=== PATIENT | male | born 1990 | race Caucasian/White ===

== ENCOUNTER → 2020-03-16 15:12 | Outpatient (CLI) | payer BC, SELFPAY | PROVIDERS: PCP Family Medicine; Visit Provider Family Medicine | DX: R00.2 Palpitations (principal) | CPT/HCPCS: 93225; 93226 ==

== ENCOUNTER → 2020-03-23 13:11 | Outpatient (CLI) | payer BC, SELFPAY ==
--- NOTE | 2020-03-23 13:14 | CA_ITS ---
APPROVED REPORT EXAM: Comprehensive 2D, Doppler, and color-flow Echocardiogram Ic Design Manager: Atiya Olvera RDCS Ht: 6 ft 1 in Wt: 231lbs BSA: 2.29 BP: 110/70 mmHg Indications: PALPS 2D Dimensions LVOT 1.87 cm (M/F) 1.5-2.5 M-Mode Dimensions RVDd 3.74 cm (0.9-2.6) LVDd 5.15 cm (3.5-5.7) LVDs 3.46 cm (3.5-5.7) IVSd 1.25 cm (0.6-1.1) PWd 1.01 cm (0.6-1.1) EF (Teich) 60.90% FS 32.80% EDV (Teich) 126.60 mL ESV (Teich) 49.50 mL LV Diastology E/A Ratio 1.30 Mitral Valve MV A Velocity 66.00 (40-130 cm/s) Left Ventricle Left atrium is normal size, ventricle is normal size, there is no concentric left ventricular hypertrophy, visually estimated ejection fraction 45% with no regional wall motion abnormality, diastolic parameters are within normal range. Right Ventricle Right atrium and right ventricular normal size and contractility. Aortic Valve Aortic valve is grossly normal, there is no aortic stenosis or aortic insufficiency. Mitral Valve Mitral valve is grossly normal, there is mild mitral regurgitation. Tricuspid Valve Tricuspid valve is grossly normal, there is mild tricuspid regurgitation, tricuspid regurgitation jet versus inadequate for calculation of the right ventricular systolic pressure. Pulmonic Valve Pulmonic valve is poorly visualized. Great Vessels Aortic root is normal size. Pericardium No significant pericardial effusion noted. Conclusion 1. Normal left ventricular size, preserved left ventricular systolic function, visually estimated ejection fraction 55% with no regional wall motion abnormality, diastolic parameters are within normal range. 2. Mild mitral and tricuspid regurgitation . 3. No significant pericardial effusion noted. Electronically signed by : Alex Patel, 03/23/2020 20:12:21
== END ==
PROVIDERS: PCP Family Medicine; Visit Provider Family Medicine
DX: R00.2 Palpitations (principal)
CPT/HCPCS: 93306

== ENCOUNTER → 2020-08-25 15:27 | Outpatient (CLI) | payer BC, SELFPAY ==
[2020-08-27 17:35] LABS: Covid-19 Nasal PCR Sendout Lex Not Detected
== END ==
PROVIDERS: PCP Family Medicine; Visit Provider Nurse Practitioner
DX: Z03.818 Encounter for observation for suspected exposure to other biological agents ruled out (principal)
CPT/HCPCS: U0004

== ENCOUNTER → 2021-04-20 13:45 | Outpatient (CLI) | payer BC, SELFPAY ==
--- NOTE | 2021-04-20 13:49 | US_ITS ---
PROCEDURE: US EXTREMITY RT LIMITED CLINICAL INDICATION: AXILLARY LYMPHADENOPATHY COMPARISON: No exams were available for comparison FINDINGS: There are numerous anechoic masses in the right axilla ranging in size from 1 cm to 4 cm the largest at 4 x 2 cm. Only minor enhanced through transmission of sound. Collectively this area measures approximately 7 x 7 cm. This has the appearance of multiple cysts but may represent multiple hypoechoic lymph nodes. Suggest CT of the axilla with contrast for further evaluation. IMPRESSION: Numerous anechoic masses in the right axilla which have a cystic appearance but is more likely related to hypoechoic lymphadenopathy. This may be seen with metastatic disease such as seminoma or lymphoma. Suggest CT of the axilla with contrast for more thorough evaluation. Dictated by: Raphael Feldman MD 04/20/2021 14:54 Raphael Feldman MD in [facility] 04/20/2021 14:54
== END ==
PROVIDERS: PCP Nurse Practitioner; Visit Provider Nurse Practitioner
DX: R59.0 Localized enlarged lymph nodes (principal)
CPT/HCPCS: 76882

== ENCOUNTER → 2021-04-29 12:46 | Outpatient (CLI) | payer BC, SELFPAY ==
--- NOTE | 2021-04-29 12:52 | CT_ITS ---
PROCEDURE: CT CHEST W CON CLINCAL INDICATION: AXILLARY LYMPHADENOPATHY COMPARISON: No exams were available for comparison TECHNIQUE: IV Contrast: 75ml Isovue 370 Axial images obtained with sagittal and coronal reformats. All CT scans at the facility use one or more dose reduction, viz: automated exposure control, ma/kV adjustment per patient size (including targeted exams where dose is matched to indication, i.e. head), or iterative reconstruction technique. FINDINGS: HEART AND MEDIASTINAL STRUCTURES: There are few small mediastinal lymph nodes which contain calcium. No hilar adenopathy. LUNGS AND PLEURAL SPACES: Unremarkable. BONY STRUCTURES: No acute bony abnormalities apparent. UPPER ABDOMEN: Unremarkable. ADDITIONAL FINDINGS: There is extensive right-sided axillary adenopathy with some nodes measuring up to 5.7 by 3.7 cm. There is 1 node which has decreased density measuring approximately 4 cm suggesting underlying necrosis. There is some minimal stranding of the fat in the right axillary region. Subpectoral nodes are present as well on the right. There is minimal gynecomastia IMPRESSION: Extensive right-sided axillary adenopathy. The adenopathy could be related to neoplasm or could be reactive from underlying infection. Has the patient had a recent Covid19 vaccine in the right upper extremity? FNA/core biopsy could be performed with sonographic guidance if clinically desired. Dictated by: Raphael Feldman MD 04/29/2021 14:10 Raphael Feldman MD in [facility] 04/29/2021 14:10
== END ==
PROVIDERS: PCP Nurse Practitioner; Visit Provider Nurse Practitioner
DX: R59.0 Localized enlarged lymph nodes (principal)
CPT/HCPCS: 71260; Q9967

== ENCOUNTER → 2021-05-25 12:16 | Outpatient (CLI) | payer BC, SELFPAY ==
--- NOTE | 2021-05-25 | US_ITS ---
PROCEDURE: US BIOPSY BREAST RT CLINICAL INDICATION: LUMP UNDER RT SIDE OF UNDERARM...PAIN COMPARISON: US US EXTREMITY RT LIMITED from 04/20/2021 FINDINGS: Following obtaining informed consent and time-out procedure under aseptic conditions and local anesthesia with 1 percent buffered lidocaine with ultrasound guidance, 18 gauge biopsy needle was inserted into the largest node in the right axillary region. Four samples were obtained 2 of which were put in RPMI and 2 in formalin. The patient tolerated the procedure well without evidence of immediate complication. Pathology: Pending IMPRESSION: Uneventful ultrasound-guided core biopsy of right axillary adenopathy. Dictated by: Raphael Feldman MD 05/28/2021 12:45 Raphael Feldman MD in [facility] 05/28/2021 12:45 MTDD
== END ==
PROVIDERS: PCP Nurse Practitioner; Visit Provider Nurse Practitioner
DX: R59.0 Localized enlarged lymph nodes (principal)
CPT/HCPCS: 19083

== ENCOUNTER → 2022-06-29 07:06 | Outpatient (CLI) | payer BC, SELFPAY ==
[2022-06-29 19:20] LABS: Adenovirus,PCR Not Detected (NotDetected); Bordetella Pertussis Not Detected (NotDetected); Chlamydophila Pneumoniae, PCR Not Detected (NotDetected); Coronavirus 229E Not Detected (NotDetected); Coronavirus NL63 Not Detected (NotDetected); Coronavirus OC43 Not Detected (NotDetected); Coronovirus HKU1,PCR Not Detected (NotDetected); Human Metapneumovirus Not Detected (NotDetected); Influenza A, PCR Not Detected (NotDetected); Influenza AH1, 2009 Not Detected (NotDetected); Influenza AH1, PCR Not Detected (NotDetected); Influenza AH3,PCR Not Detected (NotDetected); Influenza B, PCR Not Detected (NotDetected); Mycoplasma Pneumoniae, PCR Not Detected (NotDetected); Parainfluenza 1, PCR Not Detected (NotDetected); Parainfluenza 2, PCR Not Detected (NotDetected); Parainfluenza 3, PCR Not Detected (NotDetected); Parainfluenza 4, PCR Not Detected (NotDetected); Respiratory Syncytial Virus Not Detected (NotDetected); Rhinovirus/Enterovirus Not Detected (NotDetected)
== END ==
PROVIDERS: PCP Nurse Practitioner; Visit Provider Nurse Practitioner
DX: U07.1 COVID-19 (principal)
CPT/HCPCS: 87486; 87581; 87632; 87798; C9803; U0003; U0005